=== PATIENT | male | born 1985 | race Caucasian/White ===

== ENCOUNTER 2024-10-02 20:02 | Emergency (ER) | payer BC, SELFPAY ==
[2024-10-02 20:11] VITALS: BP 155/104
[2024-10-02 20:33] LABS: Hematocrit 42.7 % (39.0-52.0); Hemoglobin 14.6 g/dL (13.0-18.0); Mean Corp Hgb Conc. 34.2 g/dL (33.0-37.0); Mean Corpuscular Volume 76.9 fL (80.0-94.0); Nucleated Red Blood Cells % 0 % (-); Platelet Count 232 10^3/uL (130-400); Red Cell Dist. Width 13.1 % (11.5-14.5)
[2024-10-02 21:03] LABS: Blood Urea Nitrogen 25 mg/dl (9-20); Calcium 9.2 mg/dl (8.4-10.2); Carbon Dioxide 28 mmol/L (22-30); Chloride 99 mmol/L (98-107); Glucose 114 mg/dl (70-99); Sodium 134 mmol/L (135-145); eGFR > 60.00
--- NOTE | 2024-10-02 23:38 | ED.GENMED ---
History of Present Illness
General
Chief Complaint: Back Pain
Source: patient
Exam Limitations: none
Time Seen by Provider: 10/02/24 23:36
Nursing documentation reviewed up to this point in time: agreed with
History of Present Illness
History of Present Illness:
Note:
CHIEF COMPLAINT(S)
back pain, leg pain, bloating sensation in the abdomen, diarrhea, weight gain
HISTORY OF PRESENT ILLNESS
The patient is a 39-year-old male with no pmh who presented with back pain and leg pain following a four-day golfing trip involving significant alcohol consumption. The patient described the back pain as centered in the mid-back region, accompanied
by pain radiating into the legs, describing it as a 'gyrating pain.' Additionally, the patient reported swelling and a sensation of bloating in the abdomen, which was described as feeling �very tight.�
The patient mentioned feeling more hungover than usual on Tuesday morning after returning home late Tuesday night. Despite regular drinking on the trip, the patient asserts that he did not drink significantly more than usual. The patient also
experienced nausea since consuming sushi and a light salad and described having liquid bowel movements starting today. Before today, bowel movements during the trip were reportedly regular. The patient denied vomiting. Recently, the patient
completed a course of Azithromycin for flu-like symptoms at home, prescribed by his uncle. He also reported that pain seemed to worsen with lack of sleep over the past couple of nights.
The patient noted a recent weight gain of 10 pounds over the four-day trip, The abdominal pain has been intermittent and at times felt in the upper abdomen near the chest line. He denies any rectal bleeding, dark tarry stools, hematemesis, burning
sensation in the throat, he urinary incontinence, fecal incontinence, difficulty ambulating.
PHYSICAL EXAM
- Nursing notes reviewed and vital signs reviewed.
PROBLEM LIST
- Acute: back pain, radicular leg pain, abdominal bloating, nausea, recent change in bowel habits.
- Chronic: Umbilical hernia.
PLAN
- Suspect patient's low back pain radiating into the bilateral lower extremities and buttock from possible herniated disc, however in light of patient's abdominal pain, nausea, subjective fevers and chills with change in bowel habits will obtain CT
scan of the abdomen and pelvis
- Consider outpatient magnetic resonance imaging (MRI) for evaluation, orthopedic evaluation
- Possible initiation of steroid treatment pending further evaluation.
- Counseling on the potential effects of alcohol consumption on gastrointestinal symptoms and hydration status
DIFFERENTIAL DIAGNOSIS
The Differential Diagnosis includes, in no particular order and is not limited to:
Herniated disc, spinal stenosis, lumbar sprain, piriformis syndrome, GERD, gastritis, IBS, diverticulitis
CARE-UPDATE
10/03/24 - 02:30
BP elevated at 163/109. Patient not requesting additional pain medication. Awaiting CT results. Plan to check EKG. Continue monitoring patient status closely.
On my reassessment of patient prior to discharge, his blood pressure was 140/90. Suspect blood pressure elevation related to pain and ER environment. Patient reports that he has no history of high blood pressure. He has never started medication
for blood pressure. He does follow regularly with primary care provider. I advised patient to keep a log of his blood pressure at home and write down and schedule a follow-up appointment with his primary care provider to address this.
MDM/disposition
39-year-old male with no past medical history presents emergency department today with multiple complaints. His chief complaint is low back pain radiating into the buttocks and bilateral legs. He denies motor weakness. He denies any difficulty
ambulating. Has also had different sensation of abdominal bloating and diarrhea in the setting of past
Trip of heavy drinking however he denies burning throat or chest pain, denies any hematemesis, dark tarry stools, doubt alcoholic gastritis. Patient was golfing a lot when the symptoms started. On physical exam he is well-appearing in no acute
distress. His abdomen is soft and minimally tender. He went for CAT scan of the abdomen which showed no acute intra-abdominal pathology. Suspect lower lumbar sprain versus HNP causing sciatica. Will initiate course of steroids. Discussed
tricked return precautions. Patient stable for discharge.
Phy Exam
Physical Exam
Physical Exam:
see hpi
Course
Orders/Labs/Results
Orders:
Orders
10/02/24 20:27
Basic Metabolic Panel Urgent
Complete Blood Count/With Diff Urgent
10/02/24 23:50
Ketorolac [Toradol] 15 mg IV NOW STA
10/02/24 23:51
Urinalysis Reflex To Culture Urgent
Date Specimen was Collected: 10/02/24
Time Specimen was Collected: 23:55
10/02/24 23:53
LFT [[id number]] Urgent
Lipase Urgent
10/03/24
CT Abd/pelvis W Iv Cont Urgent
Reason For Exam: left sided abdominal pain
10/03/24 02:29
Electrocardiogram (*1) Urgent
Reason for Study: Hypertension, Benign
Abnormal Lab Results
10/02/24 10/03/24
20:27 00:01
MCV 76.9 L fL
(80.0-94.0)
MCH 26.3 L pg
(27.0-31.0)
Abs Immat Gran (auto) 0.4 H 10^3/uL
(0-0.05)
Absolute Lymphs (auto) 3.9 H 10^3/uL
(1.2-3.4)
Immature Gran % 3.9 H %
(0-0.5)
Sodium 134 L mmol/L
(135-145)
BUN 25 H mg/dl
(9-20)
Glucose 114 H mg/dl
(70-99)
ALT 57 H U/L
(0-50)
10/02/24 20:27
10/02/24 20:27
Vital Signs
Blood pressure: 140/90
Initial and Last Documented VS:
Initial Vital Signs
Temp Pulse Resp BP Pulse Ox
98.4 F 105 18 155/104 99
10/02/24 20:11 10/02/24 20:11 10/02/24 20:11 10/02/24 20:11 10/02/24 20:11
Last Documented Vital Signs
Temp Pulse Resp BP Pulse Ox
98.4 F 67 18 136/85 100
10/02/24 20:11 10/03/24 04:08 10/03/24 04:08 10/03/24 04:08 10/03/24 04:08
*Pulse Oximetry
SaO2: 99
Oxygen Mode of Delivery: Room air
Patient hypoxic: no
*Critical Care Note
Total Time (30-74mins, 75-104mins- exclusive of procedures): Not Applicable
ED Attending Note
-
Portions of this chart may have been created with voice recognition software.� Occasional wrong word or��sound alike� substitutions may have occurred due to the inherent limitations of voice recognition software.
Discharge Plan
Departure
Patient Disposition: Home (Routine Discharge)
Date of Disposition: 10/03/24
Time of Disposition: 03:48
Patient with high blood pressure during this ER visit?: Yes
Condition: Good
Discharge Problem:
Low back pain, Sciatica
Instructions: Low Back Pain (DC), Radiculopathy (DC), BLOOD PRESSURE
Prescriptions:
New
methylprednisolone [Medrol (Kareem)] 4 mg tablets,dose pack
See Rx Instructions .ROUTE .COMPLEX Qty: 21 0RF
Rx Instructions:
orally per package directions
Referrals:
Ander Valentino DO [Non-Admitting Privileges, Orthopedics] - Call in 1-3 days for appt
Vikram Cruz DO [Family Provider, Internal Medicine]
Activity Restrictions/Additional Instructions:
Medrol Dosepak has been sent to your pharmacy. Please follow package instructions for dosing. Please follow-up with your primary care provider regarding your blood pressure, keep please keep a log of your blood pressure. Please call/number to
schedule appointment for follow-up with orthopedics.
PLEASE RETURN EMERGENCY DEPARTMENT SHOULD YOU DEVELOP FEVERS OR CHILLS, CHEST PAIN, SHORTNESS OF BREATH, DIZZINESS, LIGHTHEADEDNESS, URINARY OR FECAL INCONTINENCE, GENITAL PARESTHESIAS, DIFFICULTY WALKING, OR ANY OTHER SIGNS OR SYMPTOMS WORRISOME TO
YOU
Interventions
Interventions:
*Risk Screen - Suicide Last Done: 10/02/24 20:11
*General Assessment Last Done: 10/03/24 00:46
*Neglect/Abuse Screening Last Done: 10/02/24 20:11
*ED- Fall Risk Assessment Last Done: 10/03/24 00:46
*ED COVID-19 Vaccine History Last Done: 10/03/24 00:46
*Nursing Disposition Last Done: 10/03/24 04:08
ED-Musculoskeletal Assessment Last Done: 10/02/24 22:00
Discharge Date and Time
Discharge Date/Time: 10/03/24 04:09
Print Language: KENYAN
[2024-10-03] MEDS: TORADOL 15 MG IV (00:03)
[2024-10-03 00:07] VITALS: BP 165/117
[2024-10-03 00:12] LABS: Urine Character Clear (Clear)
[2024-10-03 00:31] LABS: ALT (SGPT) 57 U/L (0-50); AST (SGOT) 36 U/L (17-59); Albumin 4.3 g/dl (3.5-5.0); Alkaline Phosphatase 38 U/L (38-126); Lipase 199 U/L (23-300); Total Protein 7.0 g/dl (6.3-8.2)
[2024-10-03 02:27] VITALS: BP 163/109
[2024-10-03 04:08] VITALS: BP 136/85
== END 2024-10-03 04:09 | disposition home or self-care (01) ==
LOC: EMR 20:02
PROVIDERS: Emergency Medicine; Physician Assistant; EMERGENCY PHYSICIAN Student in an Organized Health Care Education/Training Program; FAMILY PHYSICIAN Internal Medicine
DX: M54.40 Lumbago with sciatica, unspecified side (principal)
CPT/HCPCS: 99284; 96374; 74177; 80048; 80076; 81003; 83690; 85025; 93005; Q9967